=== PATIENT | female | born 1955 | race Caucasian/White ===

== ENCOUNTER 2018-08-19 01:14 | Observation (INO) | payer OTHER ==
--- OUTSIDE RECORDS SUMMARY | 2018-08-19 01:16 | XMS REPORT ---
:1955 Author Organization [employer] Care Team Providers Name Role Phone Kimberly Laney Provider Role Unavailable Allergies No Known Allergies Problems Problem Type Condition Code Onset Dates Condition Status Problem Hypothyroidism E03.9 Active Problem Hyperlipidemia E78.5 Active Medications No Known Medications Results No Known Results Summary Purpose [employer] Submission
--- OUTSIDE RECORDS SUMMARY | 2018-08-19 01:16 | XMS REPORT ---
:1955 Author Organization [employer] Care Team Providers Name Role Phone Kimberly Laney Provider Role Unavailable Allergies No Known Allergies Problems Problem Type Condition Code Onset Dates Condition Status Problem Hypothyroidism E03.9 Active Problem Degenerative disc disease, lumbar M51.36 Active Problem Hyperlipidemia E78.5 Active Medications No Known Medications Results No Known Results Summary Purpose [employer] Submission
[2018-08-19 02:07] LABS: Absolute Lymphocytes (CBC) 0.7 K/uL (0.7-4.9); Basophils % 0.3 % (0-1.3); Hematocrit 45.3 % (36.0-45.0); Lymphocytes % 5.3 % (15.3-44.8); MPV 10.8 fL (7.6-11.3); Monocytes % 2.9 % (3.3-12.3); RBC Red Blood Cell Count 5.45 M/uL (3.86-4.86)
[2018-08-19] MEDS ORDERED: MORPHINE 4 MG/ML SYR ONE (02:18)
[2018-08-19] MEDS ORDERED: MAGNE/ALUM HYDROXD 30 ML UCUP ONE (02:18)
[2018-08-19] MEDS ORDERED: LIDOCAINE VISCOUS 2% SOLN 15 ML UDC ONE (02:18)
[2018-08-19] MEDS ORDERED: ONDANSETRON 4 MG/2 ML VIAL ONE ×2 (02:18→14:03)
[2018-08-19] MEDS ORDERED: NA CHLORIDE 0.9% 1,000 ML ONE (02:19)
[2018-08-19] MEDS ORDERED: FAMOTIDINE 20 MG/2 ML VIAL IV ONE (02:19)
[2018-08-19 02:21] LABS: Albumin 4.5 g/dL (3.4-5.0); Bilirubin Direct 0.1 mg/dL (0-0.2); Bilirubin Total 0.5 mg/dL (0.2-1.0); Potassium 4.1 mmol/L (3.5-5.1); Protein, Total 8.2 g/dL (6.4-8.2)
[2018-08-19 03:02] LABS: Blood Morphology Comment NOT SEEN (NOT SEEN); Platelet Estimate ADEQ; Urine White Blood Cell Casts OK
--- NOTE | 2018-08-19 03:32 | ER ---
Nurse's Notes [facility] Name: Aliyah Lui Age: 63 yrs Sex: Female : 1955 Arrival Date: 08/19/2018 Time: 01:17 Bed 7 Private MD: Lenore Harris Diagnosis: Acute appendicitis Presentation: 08/19 01:29 Presenting complaint: Patient states: periumbilical abd pain and vomiting which began aa1 after eating a [employer] salad. Transition of care: patient was not received from another setting of care. Onset of symptoms was August 18, 2018 at 14:30. Risk Assessment: Do you want to hurt yourself or someone else? Patient reports no desire to harm self or others. Initial Sepsis Screen: Does the patient meet any 2 criteria? No. Patient's initial sepsis screen is negative. Does the patient have a suspected source of infection? No. Patient's initial sepsis screen is negative. Care prior to arrival: None. 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 - Social history:: Smoking status: Patient/guardian denies using tobacco, Patient/guardian denies using alcohol, street drugs, The patient lives with family. - Ebola Screening: : Patient denies exposure to infectious person Patient denies travel to an Ebola-affected area in the 21 days before illness onset. - Family history:: not pertinent. Screenin:30 Abuse screen: Denies threats or abuse. Denies injuries from another. Nutritional aa1 screening: No deficits noted. Tuberculosis screening: No symptoms or risk factors identified. Fall Risk None identified. Assessment: 01:30 General: Appears in no apparent distress. comfortable, Behavior is calm, cooperative, aa1 appropriate for age. Pain: Complains of pain in umbilical area. Neuro: Level of Consciousness is awake, alert, obeys commands, Oriented to person, place, time, situation, Gait is steady. Cardiovascular: Heart tones S1 S2 present. Respiratory: Airway is patent Respiratory effort is even, unlabored, Respiratory pattern is regular, symmetrical. GI: Abdomen is non-distended, Bowel sounds present X 4 quads. Abd is soft X 4 quads Reports nausea, vomiting. : No signs and/or symptoms were reported regarding the genitourinary system. EENT: No signs and/or symptoms were reported regarding the EENT system. Derm: No signs and/or symptoms reported regarding the dermatologic system. Musculoskeletal: Circulation, motion, and sensation intact. Capillary refill < 3 seconds. 03:12 Reassessment: Patient appears in no apparent distress at this time. Patient and/or aa1 family updated on plan of care and expected duration. Pain level reassessed. Patient is alert, oriented x 3, equal unlabored respirations, skin warm/dry/pink. Awaiting CT results. 04:00 Reassessment: Patient appears in no apparent distress at this time. Patient and/or aa1 family updated on plan of care and expected duration. Pain level reassessed. Patient is alert, oriented x 3, equal unlabored respirations, skin warm/dry/pink. Pt to be admitted; awaiting bed assignment. 04:49 Reassessment: Patient appears in no apparent distress at this time. Patient and/or aa1 family updated on plan of care and expected duration. Pain level reassessed. Patient is alert, oriented x 3, equal unlabored respirations, skin warm/dry/pink. Bed assignment received but still awaiting admission orders. 05:32 Reassessment: Patient appears in no apparent distress at this time. Patient is alert, aa1 oriented x 3, equal unlabored respirations, skin warm/dry/pink. Report given to Lyudmila on 2nd floor. Vital Signs: 01:33 BP 137 / 75; Pulse 94; Resp 18; Temp 98.3; Pulse Ox 96% on R/A; Weight 72.57 kg; Height aa1 5 ft. 2 in. (157.48 cm); Pain 8/10; 02:30 BP 125 / 69; Pulse 85; Resp 18; Pulse Ox 97% on R/A; aa1 03:10 BP 131 / 66; Pulse 80; Resp 18; Pulse Ox 96% on R/A; aa1 04:00 BP 136 / 70; Pulse 84; Resp 16; Pulse Ox 96% on R/A; Pain 0/10; aa1 04:49 BP 110 / 59; Pulse 81; Resp 16; Pulse Ox 95% on R/A; aa1 05:27 BP 136 / 62; Pulse 79; Resp 16; Temp 98.5; Pulse Ox 96% on R/A; Pain 6/10; aa1 01:33 Body Mass Index 29.26 (72.57 kg, 157.48 cm) aa1 ED Course: 01:17 Patient arrived in ED. am2 01:17 Lenore Harris FNP-C is Private Physician. am2 01:26 Serg Johnson MD is Attending Physician. ma2 01:27 Meredith Rodgers RN is Primary Nurse. aa1 01:31 Triage completed. aa1 01:32 Patient has correct armband on for positive identification. Placed in gown. Bed in low tl1 position. Call light in reach. Side rails up X 1. Pulse ox on. NIBP on. 01:32 No provider procedures requiring assistance completed. Inserted saline lock: 20 gauge tl1 in right antecubital area, using aseptic technique. Blood collected. 01:33 Arm band placed on right wrist. Patient placed in an exam room, on a stretcher. aa1 03:04 CT Abd/Pelvis - IV Contrast Only In Process Unspecified. EDMS 03:30 Nasreen Goodman MD is Hospitalizing Provider. [facility] 04:00 Door closed. Lights dimmed. Pillow given. Head of bed lowered. aa1 05:10 Hospitalizing Provider role handed off by Nasreen Goodman MD mw 05:10 Syed Potts MD is Hospitalizing Provider. 05:32 Patient admitted, IV remains in place. aa1 Administered Medications: 02:10 Drug: Zofran 4 mg Route: IVP; Infused Over: 2 mins; Site: right antecubital; tl1 03:10 Follow up: Response: No adverse reaction; Nausea is decreased aa1 02:10 Drug: GI Cocktail without - (Maalox Suspension 30 ml, Lidocaine Liquid 2 % 15 tl1 ml) Route: PO; 03:10 Follow up: Response: No adverse reaction; Marked relief of symptoms aa1 02:11 Drug: NS 0.9% 1000 ml Route: IV; Rate: 1 bolus; Site: right antecubital; tl1 02:11 Drug: Pepcid 20 mg Route: IVP; Infused Over: 2 mins; Site: right antecubital; tl1 03:11 Follow up: Response: No adverse reaction; Marked relief of symptoms aa1 02:12 Drug: morphine 4 mg Route: IVP; Infused Over: 2 mins; Site: right antecubital; tl1 03:12 Follow up: Response: No adverse reaction; Pain is decreased aa1 03:57 Drug: Dextrose 5 % in 1/2 Normal Saline with KCl 10 mEq/L 1000 ml Route: IV; Rate: 100 aa1 ml/hr; Site: right antecubital; 05:38 Follow up: IV Status: Infusion continued upon admission aa1 03:57 Drug: Zosyn 3.375 grams Route: IVPB; Infused Over: 60 mins; Site: right antecubital; aa1 04:57 Follow up: IV Status: Completed infusion; IV Intake: 100ml aa1 Intake: 04:57 IV: 100ml; Total: 100ml. aa1 Outcome: 03:31 Decision to Hospitalize by Provider. ma2 05:32 Admitted to Med/surg accompanied by tech, via stretcher, room 209, with chart, Report aa1 called to ACOSTA Coreas 05:32 Condition: stable 05:32 Instructed on the need for admit, Demonstrated understanding of instructions. 05:38 Patient left the ED. aa1 Signatures: Dispatcher [employer] EDMS Olivia Guerra RN RN Meredith Rodgers RN RN aa1 Cristy Beltrán RN RN tl1 Eliana Connor Mohammad, MD MD ma2
--- NOTE | 2018-08-19 03:32 | EDPHYS ---
Physician Documentation [facility] Name: Aliyah Lui Age: 63 yrs Sex: Female : 1955 Arrival Date: 08/19/2018 Time: 01:17 Bed 7 Private MD: Lenore Harris ED Physician Serg Johnson HPI: 08/19 03:28 This 63 yrs old Female presents to ER via Ambulatory with complaints of ma2 Abdominal Pain, Vomiting. 03:28 Onset: The symptoms/episode began/occurred gradually, 1 day(s) ago. Associated signs ma2 and symptoms: Pertinent negatives: belching, dysuria, GI bleeding, hematuria. Severity of symptoms: At their worst the symptoms were moderate in the emergency department the symptoms are unchanged. The patient has not experienced similar symptoms in the past. 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 - Social history:: Smoking status: Patient/guardian denies using tobacco, Patient/guardian denies using alcohol, street drugs, The patient lives with family. - Ebola Screening: : Patient denies exposure to infectious person Patient denies travel to an Ebola-affected area in the 21 days before illness onset. - Family history:: not pertinent. ROS: 03:28 Constitutional: Negative for fever, chills, and weight loss. ma2 03:28 Abdomen/GI: Positive for abdominal pain, Negative for vomiting, abdominal cramps, black/tarry stool. 03:28 All other systems are negative. Exam: 03:28 Constitutional: This is a well developed, well nourished patient who is awake, alert, ma2 and in no acute distress. Chest/axilla: Normal chest wall appearance and motion. Nontender with no deformity. No lesions are appreciated. Cardiovascular: Regular rate and rhythm with a normal S1 and S2. No gallops, murmurs, or rubs. Normal PMI, no JVD. No pulse deficits. Respiratory: Lungs have equal breath sounds bilaterally, clear to auscultation and percussion. No rales, rhonchi or wheezes noted. No increased work of breathing, no retractions or nasal flaring. Back: No spinal tenderness. No costovertebral tenderness. Full range of motion. MS/ Extremity: Pulses equal, no cyanosis. Neurovascular intact. Full, normal range of motion. Neuro: Awake and alert, GCS 15, oriented to person, place, time, and situation. Cranial nerves II-XII grossly intact. Motor strength 5/5 in all extremities. Sensory grossly intact. Cerebellar exam normal. Normal gait. 03:28 Abdomen/GI: Palpation: moderate abdominal tenderness, in the umbilical area. Vital Signs: 01:33 BP 137 / 75; Pulse 94; Resp 18; Temp 98.3; Pulse Ox 96% on R/A; Weight 72.57 kg; Height aa1 5 ft. 2 in. (157.48 cm); Pain 8/10; 02:30 BP 125 / 69; Pulse 85; Resp 18; Pulse Ox 97% on R/A; aa1 03:10 BP 131 / 66; Pulse 80; Resp 18; Pulse Ox 96% on R/A; aa1 04:00 BP 136 / 70; Pulse 84; Resp 16; Pulse Ox 96% on R/A; Pain 0/10; aa1 04:49 BP 110 / 59; Pulse 81; Resp 16; Pulse Ox 95% on R/A; aa1 05:27 BP 136 / 62; Pulse 79; Resp 16; Temp 98.5; Pulse Ox 96% on R/A; Pain 6/10; aa1 01:33 Body Mass Index 29.26 (72.57 kg, 157.48 cm) aa1 MDM: 01:26 Patient medically screened. ma2 03:28 Differential diagnosis: gastritis, pancreatitis, appendicitis, diverticulitis. Data ma2 reviewed: vital signs, nurses notes, lab test result(s). Counseling: I had a detailed discussion with the patient and/or guardian regarding: the historical points, exam findings, and any diagnostic results supporting the discharge/admit diagnosis, the presence of at least one elevated blood pressure reading (>120/80) during this emergency department visit, the need for outpatient follow up. Counseling: I had a detailed discussion with the patient and/or guardian regarding: the need for outpatient follow up, the need for further work-up and treatment in the hospital, discussed with dr. grant who recommend admission npo and abx . Response to treatment: the patient's symptoms have markedly improved after treatment. 04:45 ED course: I paged Dr. Mceknzie at 0445, he did not answer, I left a voice note with brief [facility] patient information and requested a call back . 08/19 01:50 Order name: Basic Metabolic Panel; Complete Time: 02:49 [facility] 08/19 01:50 Order name: CBC with Diff 1 08/19 01:50 Order name: Creatinine for Radiology; Complete Time: 02:49 [facility] 08/19 01:50 Order name: Hepatic Function; Complete Time: 02:49 [facility] 08/19 01:50 Order name: Lipase; Complete Time: 02:49 [facility] 08/19 03:03 Order name: CBC Smear Scan; Complete Time: 03:11 [facility] 08/19 01:55 Order name: CT Abd/Pelvis - IV Contrast Only [facility] 08/19 04:58 Order name: Basic Metabolic Panel [facility] 08/19 04:58 Order name: Basic Metabolic Panel [facility] 08/19 01:50 Order name: IV Saline Lock; Complete Time: 01:50 [facility] 08/19 01:50 Order name: Labs collected and sent; Complete Time: 02:12 [facility] 08/19 03:32 Order name: NPO; Complete Time: 03:41 [facility] 08/19 04:58 Order name: CONS Pharmacy Consult [facility] 08/19 04:58 Order name: CONS Physician Consult [facility] 08/19 04:58 Order name: NPO EDIA Administered Medications: 02:10 Drug: Zofran 4 mg Route: IVP; Infused Over: 2 mins; Site: right antecubital; tl1 03:10 Follow up: Response: No adverse reaction; Nausea is decreased aa1 02:10 Drug: GI Cocktail without - (Maalox Suspension 30 ml, Lidocaine Liquid 2 % 15 tl1 ml) Route: PO; 03:10 Follow up: Response: No adverse reaction; Marked relief of symptoms aa1 02:11 Drug: NS 0.9% 1000 ml Route: IV; Rate: 1 bolus; Site: right antecubital; tl1 02:11 Drug: Pepcid 20 mg Route: IVP; Infused Over: 2 mins; Site: right antecubital; tl1 03:11 Follow up: Response: No adverse reaction; Marked relief of symptoms aa1 02:12 Drug: morphine 4 mg Route: IVP; Infused Over: 2 mins; Site: right antecubital; tl1 03:12 Follow up: Response: No adverse reaction; Pain is decreased aa1 03:57 Drug: Dextrose 5 % in 1/2 Normal Saline with KCl 10 mEq/L 1000 ml Route: IV; Rate: 100 aa1 ml/hr; Site: right antecubital; 05:38 Follow up: IV Status: Infusion continued upon admission aa1 03:57 Drug: Zosyn 3.375 grams Route: IVPB; Infused Over: 60 mins; Site: right antecubital; aa1 04:57 Follow up: IV Status: Completed infusion; IV Intake: 100ml aa1 Disposition: 08/19/18 03:31 Hospitalization ordered by Syed Potts for Observation. Preliminary diagnosis is Acute appendicitis. - Bed requested for Telemetry/MedSurg (observation). - Status is Observation. aa1 - Condition is Stable. - Problem is new. - Symptoms are unchanged. UTI on Admission? No Signatures: Dispatcher [employer] EDMS Olivia Guerra RN RN Meredith Rodgers RN RN aa1 Cristy Beltrán RN RN tl1 Serg Johnson MD MD ma2 Linda Chen ar5 Corrections: (The following items were deleted from the chart) 04:42 03:31 Hospitalization Ordered by Nasreen Goodman MD for Observation. Preliminary ar5 diagnosis is Acute appendicitis. Bed requested for Telemetry/MedSurg (observation). Status is Observation. Condition is Stable. Problem is new. Symptoms are unchanged. UTI on Admission? No. ma2 05:09 04:42 08/19/2018 03:31 Hospitalization Ordered by Nasreen Goodman MD for Observation. zenaida Preliminary diagnosis is Acute appendicitis. Bed requested for Telemetry/MedSurg (observation). Status is Observation. Condition is Stable. Problem is new. Symptoms are unchanged. UTI on Admission? No. ar5 05:10 05:09 08/19/2018 03:31 Hospitalization Ordered by Nasreen Goodman MD for Observation. zenaida Preliminary diagnosis is Acute appendicitis. Bed requested for Telemetry/MedSurg (observation). Status is Observation. Condition is Stable. Problem is new. Symptoms are unchanged. UTI on Admission? No. mw 05:38 05:10 08/19/2018 03:31 Hospitalization Ordered by Syed Potts MD for Observation. aa1 Preliminary diagnosis is Acute appendicitis. Bed requested for Telemetry/MedSurg (observation). Status is Observation. Condition is Stable. Problem is new. Symptoms are unchanged. UTI on Admission? No.
[2018-08-19] MEDS ORDERED: PIPER/TAZO/NS 3.375gm 3.375 GM/100 ML BAG ONE (03:58)
[2018-08-19] MEDS ORDERED: D5.45NS W/KCL 20MEQ 1,000 ML IV ONE (03:58)
[2018-08-19] MEDS ORDERED: ONDANSETRON 4 MG/2 ML VIAL IV PRN (04:49)
[2018-08-19] MEDS ORDERED: HYDROMORPHONE HCL 1 MG/ML INJ IV PRN (04:49)
[2018-08-19] MEDS ORDERED: MORPHINE 2 MG/ML SYR IV PRN (04:49)
[2018-08-19] MEDS ORDERED: ACETAMINOPHEN 500 MG TAB PO PRN (04:49)
[2018-08-19] MEDS ORDERED: D5 0.45 NS 1,000 ML IV SCH (05:00)
--- NOTE | 2018-08-19 08:47 | P.HP ---
Certification for Inpatient Patient admitted to: Observation With expected LOS: >2 Midnights Practitioner: I am a practitioner with admitting privileges, knowledge of patient current condition, hospital course, and medical plan of care. Services: Services provided to patient in accordance with Admission requirements found in Title 42 Section 412.3 of the Code of Federal Regulations Patient History Date of Service: 08/19/18 Primary Care Provider: Lenore Harris Reason for admission: Appendicitis Allergies levofloxacin [From Levaquin] Allergy (Unverified 03/19/17 16:17) Unknown Home Medications: Levothyroxine [Synthroid] 125 mcg PO [id number] 08/19/18 - Past Medical/Surgical History Has patient received pneumonia vaccine in the past: No Diabetic: No -: Hypothyroidism - Social History Smoking Status: Never smoker Alcohol use: No CD- Drugs: No Caffeine use: Yes Place of Residence: Home Review of Systems 10-point ROS is otherwise unremarkable Gastrointestinal: Nausea, Vomiting, Abdominal Pain Physical Examination - Vital Signs Temperature: 98.4 F Blood Pressure: 124/58 Pulse: 84 Respirations: 16 Pulse Ox (%): 100 - Physical Exam General: Alert, In no apparent distress HEENT: Atraumatic, PERRLA, Mucous membr. moist/pink, EOMI, Sclerae nonicteric Neck: Supple, 2+ carotid pulse no bruit, No LAD, Without JVD or thyroid abnormality Respiratory: Clear to auscultation bilaterally, Normal air movement Cardiovascular: Regular rate/rhythm, Normal S1 S2 Gastrointestinal: Normal bowel sounds, Tenderness (Mild mcburneys point tenderness ) Musculoskeletal: No tenderness Integumentary: No rashes Neurological: Normal gait, Normal speech, Normal strength at 5/5 x4 extr, Normal tone, Normal affect Lymphatics: No axilla or inguinal lymphadenopathy - Studies Laboratory Data (last 24 hrs) 08/19/18 01:30: Creatinine 0.84 08/19/18 01:30: WBC 13.8 H, Hgb 15.1 H, Hct 45.3 H, Plt Count 279 08/19/18 01:30: Sodium 138, Potassium 4.1, BUN 17, Creatinine 0.85, Glucose 138 H, Total Bilirubin 0.5, AST 23, ALT 38, Alkaline Phosphatase 98, Lipase 74 Assessment and Plan - Problems (Diagnosis) (1) Appendicitis Current Visit: Yes Status: Acute Plan: Seen by Dr. Benitez Taking her to the OR today. Qualifiers: Appendicitis type: acute appendicitis Appendicitis gangrene presence: without gangrene Appendicitis perforation presence: without perforation Appendicitis abscess presence: without abscess (2) Hypothyroidism Current Visit: Yes Status: Acute Plan: Patient is stable. Can hold as she is npo Qualifiers: Hypothyroidism type: unspecified Qualified Code(s): E03.9 - Hypothyroidism , unspecified Discharge Plan: Home Plan to discharge in: 24 Hours - Advance Directives Does patient have a Living Will: No Does patient have a Durable POA for Healthcare: No - Code Status/Comfort Care Code Status Assessed: No Code Status: Full Code Physician Review: Patient Assessed, Agree with Above Assessment and Plan Critical Care: No Time Spent Managing Pts Care (In Minutes): 35
[2018-08-19] MEDS ORDERED: PIPER/TAZO/NS 3.375gm 3.375 GM/100 ML BAG IVPB SCH (12:00)
[2018-08-19] MEDS ORDERED: Ringers Lactate 1,000 ML IV ONE (12:11)
--- NOTE | 2018-08-19 12:11 | CON ---
Date of Consultation: 08/19/2018 Brief History Of Present Illness: The patient is a 63-year-old female who presents to [facility] with approximately 1 day of abdominal pain beginning approximately 2 p.m. yesterday. She was ea ting at [employer] she states and felt a sense of fullness and started having periumbilical pain at that time. No nausea, no vomiting. Mild subjective fever. No chills. No change in bowel or bladder hab its. The pain now has radiated to the right lower quadrant. She has never had similar episodes befo re in the past. She has had a tubal ligation only. No other gynecologic issues. The pain is consta nt at this area. Tenderness has proceeded to got worse, but since admission, it has gotten somewhat improved with medication and treatment, but continues to be significant in the right lower quadrant, particularly in the suprapubic area. Past Medical History: Significant for hypothyroidism, hyperlipidemia. Past Surgical History: She had tubal ligation, carpal tunnel surgery, surgery on cyst of the right a rm. She has had a breast biopsy and a tonsillectomy. Allergies: TO LEVAQUIN AND TAPE/LATEX. Home Medications: Include only Synthroid 125 mcg p.o. daily at 6 a.m. Social History: She denies smoking, alcohol, or recreational drug use. Review of Systems: A 10-point review of systems other than HPI denies. Physical Examination: Vital Signs: At the time of my examination, her vital signs were a BMI was 29.3, her blood pressure was 124/58, pulse 84, respiratory rate 16, temperature 98.4. General: She is awake, alert, oriented. Psychiatric: She is appropriate, conversive. HEENT: Normocephalic. Sclerae anicteric. Mucous membranes are moist. Oropharynx clear. Neck: Supple. No JVD. Chest: Normal expansion and excursion. Cardiovascular: Regular rate and rhythm. Pulmonary: Clear to auscultation bilaterally. Abdomen: Soft with positive right lower quadrant focal peritonitis at McBurney point. Positive toi umbilical tenderness in the suprapubic region as well. She has mild voluntary guarding in this area. Mild rebound. Extremities: No clubbing, cyanosis, or edema. Skin: Warm and dry. Laboratory Data: Reveals white blood count of 13.8, hemoglobin is 15.1, hematocrit of 45.3, platelet count is 279, neutrophils are 91%. Her sodium is 138, potassium 4.1, chloride 104, carbon dioxide 2 3, BUN 17, creatinine 0.8, glucose 138, calcium 9.0, total bilirubin 0.5, direct component 0.1, AST 2 3, ALT 38, alk phos is 98, lipase 74. She had a CT scan performed of the abdomen and pelvis. The of ficial dictation is currently pending, however, the [email or web address] radiology system shows signs consistent with acute early appendicitis, periappendiceal stranding, and appendicolith evident. There is enlar gement of the appendix I believe to 1.3 cm. Assessment And Plan: This is a 63-year-old female who comes in with signs and symptoms of early acut e appendicitis with an appendicolith. 1.IV fluid hydration. 2.Antibiotic coverage. 3.I have explained the risks, benefits, and alternatives of laparoscopic, possible open appendectomy including but not limited to bleeding, infection, damage to surrounding tissues, need further operat ion and procedures. The patient agrees to proceed as indicated. Thank you for this interesting consult. MAHAMED/STEPAN Voice ID: [id number] Report ID: [id number]
[2018-08-19] MEDS ORDERED: FENTANYL CITR 100 MCG/2 ML ONE (13:34)
[2018-08-19] MEDS ORDERED: LIDOCAINE 2% MPF 5 ML VIAL ONE (13:34)
[2018-08-19] MEDS ORDERED: PROPOFOL 200 MG/20 ML VIAL IV ONE (13:34)
[2018-08-19] MEDS ORDERED: ROCURONIUM 50 MG/5 ML VIAL IV ONE (13:35)
[2018-08-19] MEDS ORDERED: BUPIVACAINE 0.25% PF 10 ML VIAL ONE (13:38)
[2018-08-19] MEDS ORDERED: KETOROLAC 30 MG/ML INJ ONE (14:01)
[2018-08-19] MEDS ORDERED: DEXAMETHASONE 10 MG/ML VIAL ONE (14:01)
[2018-08-19] MEDS ORDERED: GLYCOPYRROLATE 0.2 MG/ML SYR ONE (14:28)
[2018-08-19] MEDS ORDERED: NEOSTIGMINE 1 MG/ML -10 ML VIAL ONE (14:28)
--- NOTE | 2018-08-19 14:31 | P.OP ---
Preoperative diagnosis: Acute Appendicitis Postoperative diagnosis: Acute Appendicitis Primary procedure: Laparoscopic Appendectomy Anesthesia: GETA + Local Estimated blood loss: <10cc Specimen: Vermiform Appendix Findings: Grossly inflammed appendix, suppurative changes Complications: None Transferred to: Recovery Room Condition: Good
[2018-08-19] MEDS ORDERED: HYDROCODONE/APAP 5/325 MG TAB PO PRN (14:35)
--- NOTE | 2018-08-19 15:10 | OP ---
Date of Procedure: 08/19/2018 Surgeon: Elian Ocasio MD, Preoperative Diagnosis: Acute appendicitis. Postoperative Diagnosis: Acute appendicitis. Procedure Performed: Laparoscopic appendectomy. Anesthesia: General endotracheal plus local with 0.25% Marcaine with epinephrine. Estimated Blood Loss: Less than 10 cc. Specimen: Vermiform appendix. Findings: Grossly inflamed appendix and suppurative changes. Complications: None. Disposition: Transferred to recovery room in good condition. Procedure In Detail: After informed consent was obtained, the patient was brought to the operating r oom, prepped and draped in the usual sterile fashion. After adequate anesthesia was achieved, an inf raumbilical area was anesthetized with 0.25% Marcaine, sharply incised. A 5 mm trocar was introduced in the abdomen without evidence of complication. Insufflation was obtained to 15 mmHg at this time. The area was inspected. There was no injury to vital structures upon entry into the abdomen. Aleksander tional trocar site was chosen in the suprapubic region. This was similarly anesthetized, sharply inc ised. The 5 mm trocar was introduced in the abdomen without evidence of complication. The umbilical trocar was then up-sized to a 12 mm under direct visualization without evidence of complication. Ad ditional trocar site was chosen in the left lower quadrant. This similarly anesthetized, sharply inc ised. A 5 mm trocar was introduced in the abdomen without evidence of complication. The patient was then positioned in head down, right side up position. Ratcheted grasper was used to grasp the patie nt's appendix, it was found to be in the right lower quadrant. There were suppurative changes in the area and some murky inflammatory fluid, but no evidence of gross perforation. The appendix was gras ped, elevated, and a mesoappendiceal window was created with the [place] retractor. Endo ZULAY 35 mookie e load was fired across the base of the appendix with good approximation of tissues. Staple line was found to be good and intact. The LigaSure device then used to take the mesoappendix down without ev idence of complication. The appendix was placed in the EndoCatch bag and removed through the umbilic al trocar. The abdomen was then re-insufflated at this time. The area was inspected. Staple line w as found to be in good position. Good hemostasis was achieved without any additional hemostatic giuseppe uvers. The area was copiously irrigated multiple times until completely clear. The pelvis was then inspected and washed out once again at this time, and all irrigant was removed at this time. The abd omen and pelvis were clean at the end of the procedure, and the staple line was found to be in good a natomic position without any evidence of leakage. No additional hemostatic maneuvers were required a t this point. The patient was positioned in neutral position and the remainder of the abdomen was th en suctioned out, and the umbilical trocar was removed. The umbilical trocar site was then closed us ing a Jacoby-La suture passer and 0 Vicryl in interrupted fashion with good approximation of ti ssues. The abdomen was then completely desufflated under direct visualization without evidence of co mplication. All trocars were removed. All skin incisions copiously irrigated and closed with a 4-0 Monocryl in a running fashion. Dermabond was placed over top. The patient tolerated the procedure w ell without evidence of complication and transferred to PACU in good condition. All counts were matthew ect at the end of the case. MAHAMED/STEPAN Voice ID: [id number] Report ID: [id number]
--- NOTE | 2018-08-21 11:30 | P.DS ---
Admission Date: 08/19/18 Discharge Date: 08/19/18 Primary Care Provider: Lenore Harris Disposition: ROUTINE DISCHARGE Discharge Condition: GOOD Reason for Admission: Appendicitis - Problems (1) Appendicitis Status: Acute Qualifiers: Appendicitis type: acute appendicitis Appendicitis gangrene presence: without gangrene Appendicitis perforation presence: without perforation Appendicitis abscess presence: without abscess (2) Hypothyroidism Status: Acute Qualifiers: Hypothyroidism type: unspecified Qualified Code(s): E03.9 - Hypothyroidism , unspecified Brief History of Present Illness: Patient admitted for abdomina pain and nausea. Was sent to the floor with a consult to Dr. Benitez Hospital Course: Had lap appendectomy with Dr. Ocasio. Who cleared her for discharge home. will have her follow up with her PCP. Lenore Harris. Vital Signs/Physical Exam: Temp Pulse Resp BP Pulse Ox 99.4 F 75 18 106/50 L 96 08/19/18 16:00 08/19/18 16:00 08/19/18 16:00 08/19/18 16:00 08/19/18 16:00 General: Alert, In no apparent distress HEENT: Atraumatic, PERRLA, EOMI Neck: Supple, JVD not distended Respiratory: Clear to auscultation bilaterally, Normal air movement Cardiovascular: Regular rate/rhythm, Normal S1 S2 Gastrointestinal: Normal bowel sounds, No tenderness Musculoskeletal: No tenderness Integumentary: No rashes Neurological: Normal speech, Normal tone, Normal affect Lymphatics: No axilla or inguinal lymphadenopathy Laboratory Data at Discharge: WBC 13.8 K/uL (4.3-10.9) H 08/19/18 01:30 Hgb 15.1 g/dL (12.0-15.0) H 08/19/18 01:30 Hct 45.3 % (36.0-45.0) H 08/19/18 01:30 Plt Count 279 K/uL (152-406) 08/19/18 01:30 Sodium 138 mmol/L (136-145) 08/19/18 01:30 Potassium 4.1 mmol/L (3.5-5.1) 08/19/18 01:30 BUN 17 mg/dL (7-18) 08/19/18 01:30 Creatinine 0.85 mg/dL (0.55-1.3) 08/19/18 01:30 Glucose 138 mg/dL (74-106) H 08/19/18 01:30 Total Bilirubin 0.5 mg/dL (0.2-1.0) 08/19/18 01:30 AST 23 U/L (15-37) 08/19/18 01:30 ALT 38 U/L (12-78) 08/19/18 01:30 Alkaline Phosphatase 98 U/L (45-117) 08/19/18 01:30 Lipase 74 U/L (73-393) 08/19/18 01:30 Home Medications: Levothyroxine [Synthroid] 125 mcg PO [id number] 08/19/18 Diet: Regular Activity: No lifting more than 10 lbs Followup: Elian Ocasio MD [ACTIVE - CAN ADMIT] - Time spent managing pt's care (in minutes): 20
--- NOTE | 2018-08-21 12:39 | RAD REPORT ---
EXAM DESCRIPTION: CT - Abdomen Pelvis W Contrast - 08/19/2018 3:28 am ADDENDUM #1 95 mL Isovue-300 intravenous contrast utilized for the study. Electronically signed by: Taqueria Pacheco MD 08/19/2018 3:41 AM CDT End of Addendum COMPARISON: CT abdomen pelvis March 19, 2017 CLINICAL HISTORY: Periumbilical abdominal pain TECHNIQUE: Multiple helical axial images were obtained through the abdomen and pelvis using intraven ous contrast. Coronal and sagittal reformatted images were obtained. All CT scans at this facility use dose modulation, iterative reconstruction, and/or weight-based dosi ng when appropriate to reduce radiation dose to as low as reasonably achievable. FINDINGS: Lung bases: Appear unremarkable. Liver: Low-attenuation is present suggestive of fatty changes. Gallbladder/biliary: Appears unremarkable Pancreas: Unremarkable. No evidence of ductal enlargement. Spleen: Appears unremarkable. No splenomegaly. Adrenals: Unremarkable. Kidneys and ureters: No evidence of hydronephrosis. Normal enhancement. Bladder: Unremarkable. Pelvic organs: Unremarkable. Bowel: Appendix is enlarged measuring up to 1.3 cm in width with trace adjacent stranding suggestive of acute appendicitis. There is a 1.3 cm calcification in the proximal appendiceal lumen compatible w ith an appendicolith. No evidence of abscess. No evidence of bowel obstruction. No bowel wall thick ening. Vasculature: Mild aortic atherosclerosis is present. Peritoneum: No free air. No significant free fluid. Lymph nodes: Unremarkable. Soft tissues: Unremarkable. Bones: Rounded lucency with striations in the L4 vertebral body is suggestive of a hemangioma. IMPRESSION: Findings suggestive of acute appendicitis. THIS REPORT CONTAINS FINDINGS THAT MAY BE CRITICAL TO PATIENT CARE: The findings were verbally discu ssed via telephone conference with Dr. Johnson by Dr. Pacheco at 0320 hours central time on August 19, 2018 . The results were acknowledged and understood. Electronically signed by: Taqueria Pacheco MD 08/19/2018 3:22 AM CDT Due to temporary technical issues with the PACS/Fluency reporting system, reports are being signed by the in house radiologist as a courtesy to ensure prompt reporting. The interpreting radiologist is f ully responsible for the content of the report.
== END 2018-08-19 18:24 | disposition home or self-care (01) ==
LOC: ER 01:14 → ERHOLD 04:49 → INTOOBSV 04:49 → 2ND 05:29
PROVIDERS: ADMIT Internal Medicine; ATTEND Internal Medicine
PROC: 0DTJ4ZZ Resection of Appendix, Percutaneous Endoscopic Approach (ICD-10-PCS; principal; 2018-08-19 12:00)
DX: K35.80 Unspecified acute appendicitis (principal); E03.9 Hypothyroidism, unspecified; E78.5 Hyperlipidemia, unspecified; Z91.040 Latex allergy status
CPT/HCPCS: 36415; 74177; 80048; 80076; 83690; 85025; 88304; 96365; 96366; 96368; 96375; 99285; G0378; J1100; J2270; J2405; J2543; J2704; J2710; J3010; J7030; Q9967

== ENCOUNTER 2018-08-21 14:35 | Inpatient (IN) | payer OTHER ==
--- OUTSIDE RECORDS SUMMARY | 2018-08-21 14:44 | XMS REPORT ---
:1955 Author Organization [employer] Care Team Providers Name Role Phone Kimberly Laney Provider Role Unavailable Allergies No Known Allergies Problems Problem Type Condition Code Onset Dates Condition Status Problem Hypothyroidism E03.9 Active Problem Degenerative disc disease, lumbar M51.36 Active Problem Hyperlipidemia E78.5 Active Medications No Known Medications Results No Known Results Summary Purpose [employer] Submission
[2018-08-21] MEDS ORDERED: NA CHLORIDE 0.9% 1,000 ML ONE ×2 (15:44→18:39)
[2018-08-21] MEDS ORDERED: ONDANSETRON 4 MG/2 ML VIAL ONE (15:44)
[2018-08-21 16:06] LABS: Absolute Lymphocytes (CBC) 0.6 K/uL (0.7-4.9); Basophils % 0.3 % (0-1.3); Eosinophils % 0.1 % (0-4.4); Lymphocytes % 5.8 % (15.3-44.8); MPV 10.5 fL (7.6-11.3); Monocytes % 3.1 % (3.3-12.3); RBC Red Blood Cell Count 5.08 M/uL (3.86-4.86)
[2018-08-21 16:15] LABS: Albumin 3.4 g/dL (3.4-5.0); Bilirubin Direct 0.1 mg/dL (0-0.2); Bilirubin Total 0.6 mg/dL (0.2-1.0); Potassium 3.9 mmol/L (3.5-5.1); Protein, Total 8.2 g/dL (6.4-8.2)
--- NOTE | 2018-08-21 17:05 | RAD REPORT ---
EXAM DESCRIPTION: CT - Abdomen Pelvis W Contrast - 08/21/2018 4:39 pm CLINICAL HISTORY: Abdominal pain, diarrhea, laparoscopic appendectomy 2 days earlier COMPARISON: CT study August 19 TECHNIQUE: Biphasic, helical CT imaging of the abdomen and pelvis was performed following 100 ml non -ionic IV contrast. No oral contrast administered. All CT scans are performed using dose optimization technique as appropriate and may include automated exposure control or mA/KV adjustment according to patient size. FINDINGS: Lung base atelectasis changes are present. The liver, spleen, and pancreas show no suspicious findings. Gallbladder and biliary tree are also wi thout suspicious finding. Symmetric renal function is seen with no hydronephrosis or suspicious renal mass. No pyelonephritis o r acute parenchymal process. No bladder abnormalities. No adrenal abnormalities. Stomach is distended but not dilated by retained fluid. No gastric wall thickening or mass. No gastri c outlet obstruction. Duodenum is normal in appearance. Distal to the ligament of Treitz small bowel loops are dilated up to 3.7 cm. This dilatation abruptly truncates at a periumbilical hernia. The her joe is 4 cm in diameter with a 2 centimeter neck. Hernia contains a knuckle of small bowel. The exiti ng limb of the small bowel to the terminal ileum is decompressed. Colon is decompressed. Appendectomy surgical changes are noted. Small quantity of free fluid is present in the cul de sac. Herniated bow el loop in the dilated bowel loops do not appear abnormally thickened [place]. Vascular compromise is n ot currently suspected. No free air or pneumatosis. No abscess or extravasation of bowel content. No free air, free fluid or inflammatory stranding. No hernia, mass or bulky lymphadenopathy. No suspicious bony findings. IMPRESSION: Mechanical small bowel obstruction secondary to an incarcerated periumbilical hernia. Hernia contains a single loop of small bowel with the exiting limb, distal small bowel and colon deco mpressed. No abscess, free air or extravasation of bowel content.
[2018-08-21] MEDS ORDERED: MEPERIDINE HCL 25 MG/0.5 ML ONE ×2 (17:30→18:39)
--- NOTE | 2018-08-21 18:20 | ER ---
Nurse's Notes [facility] Name: Aliyah Lui Age: 63 yrs Sex: Female : 1955 Arrival Date: 08/21/2018 Time: 14:37 Bed 7 Private MD: Diagnosis: Incarcerated periumbilical hernia;Small Bowel Obstruction Presentation: 08/21 14:38 Presenting complaint: Patient states: S/P lap appendectomy from Sat and been vomiting hj with "like dark stuff and it smells bad" since yesterday; reports low grade fever; reports diarrhea;. Transition of care: patient was not received from another setting of care. Onset of symptoms was August 21, 2018. Risk Assessment: Do you want to hurt yourself or someone else? Patient reports no desire to harm self or others. Initial Sepsis Screen: Does the patient meet any 2 criteria? No. Patient's initial sepsis screen is negative. Does the patient have a suspected source of infection? No. Patient's initial sepsis screen is negative. Care prior to arrival: None. 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 - Family history:: not pertinent. - Social history:: Smoking status: Patient/guardian denies using tobacco. - Ebola Screening: : Patient negative for fever greater than or equal to 101.5 degrees Fahrenheit, and additional compatible Ebola Virus Disease symptoms Patient denies exposure to infectious person Patient denies travel to an Ebola-affected area in the 21 days before illness onset No symptoms or risks identified at this time. - Hospitalizations: : No recent hospitalization is reported. Screenin:00 Abuse screen: Denies threats or abuse. Denies injuries from another. Nutritional hb screening: No deficits noted. Tuberculosis screening: No symptoms or risk factors identified. Fall Risk None identified. Assessment: 15:00 General: Appears in no apparent distress. Behavior is calm, cooperative. Pain: Pain hb currently is 3 out of 10 on a pain scale. Neuro: Level of Consciousness is awake, alert, obeys commands, Oriented to person, place, time, situation. Cardiovascular: Capillary refill < 3 seconds Patient's skin is warm and dry. Respiratory: Airway is patent Respiratory effort is even, unlabored, Respiratory pattern is regular, symmetrical. GI: Abdomen is non-distended, Bowel sounds present X 4 quads. Reports nausea. : No signs and/or symptoms were reported regarding the genitourinary system. EENT: No signs and/or symptoms were reported regarding the EENT system. Derm: Skin is intact, is healthy with good turgor. Musculoskeletal: No signs and/or symptoms reported regarding the musculoskeletal system. 15:56 Reassessment: Patient appears in no apparent distress at this time. No changes from previously documented assessment. Patient and/or family updated on plan of care and expected duration. Pain level reassessed. Patient is alert, oriented x 3, equal unlabored respirations, skin warm/dry/pink. 16:55 Reassessment: Patient appears in no apparent distress at this time. Patient and/or hb family updated on plan of care and expected duration. Pain level reassessed. Patient is alert, oriented x 3, equal unlabored respirations, skin warm/dry/pink. Vital Signs: 14:40 BP 142 / 79; Pulse 99; Resp 18; Temp 98.2(O); Pulse Ox 95% on R/A; Weight 72.57 kg; hj Height 5 ft. 2 in. (157.48 cm); Pain 3/10; 15:45 BP 127 / 64; Pulse 97; Resp 15; Pulse Ox 97% on R/A; Pain 3/10; hb 16:45 BP 133 / 73; Pulse 88; Resp 15; Pulse Ox 99% on R/A; Pain 0/10; hb 18:36 BP 133 / 73; Pulse 95; Resp 17; Pulse Ox 100% on R/A; sg 19:20 BP 126 / 67; Pulse 80; Resp 16; Temp 98.2; Pulse Ox 96% on R/A; sg 14:40 Body Mass Index 29.26 (72.57 kg, 157.48 cm) ED Course: 14:37 Patient arrived in ED. mr 14:40 Triage completed. hj 14:40 Arm band placed on right wrist. 14:44 Hakeem Garza MD is Attending Physician. rn 15:00 Patient has correct armband on for positive identification. Placed in gown. Bed in low hb position. Call light in reach. Side rails up X 1. 15:22 Anamaria Rust RN is Primary Nurse. hb 15:32 Inserted saline lock: 20 gauge in right antecubital area, using aseptic technique. hb Blood collected. 15:41 Radiology exam delayed due to lab results not completed at this time. (BUN/Creatinine) nj IV insertion attempt and/or patient not having appropriate IV at this time. 15:44 EKG done, by environmental tech. reviewed by Hakeem Garza MD. sm3 16:37 CT completed. Patient tolerated procedure well. Patient moved to CT. Patient moved back wi from CT. 16:38 CT Abd/Pelvis - IV Contrast Only In Process Unspecified. EDMS 18:19 Elian Ocasio MD is Hospitalizing Provider. rn Administered Medications: 15:50 Drug: Zofran 4 mg Route: IVP; Site: right antecubital; hb 16:12 Follow up: Response: No adverse reaction hb 15:51 Drug: NS 0.9% 1000 ml Route: IV; Rate: 1000 ml; Site: right antecubital; hb 16:55 Follow up: Response: No adverse reaction; IV Status: Completed infusion; IV Intake: hb 1000ml 17:19 Drug: Demerol 25 mg Route: IVP; Site: right antecubital; sg 18:40 Drug: Demerol 25 mg Route: IVP; Site: right antecubital; sg 18:40 Drug: NS 0.9% 1000 ml Route: IV; Rate: 125 ml/hr; Site: right antecubital; sg Intake: 16:55 IV: 1000ml; Total: 1000ml. hb Outcome: 18:19 Decision to Hospitalize by Provider. rn 19:54 Patient left the ED. ak1 Signatures: Dispatcher [employer] EDMS Saeed Tidwell RN RN sg JunoEugenia Hakeem Garza MD MD rn Krenek, Amber, RN RN ak1 Raphael Briscoe RN RN Anamaria Rust RN RN Bubba Lopez Shakira 3 Corrections: (The following items were deleted from the chart) 14:42 14:40 Pulse 99bpm; Resp 18bpm; Pulse Ox 95% RA; Temp 98.2F Oral; 72.57 kg; Height 5 ft. hj 2 in.; BMI: 29.2; Pain 3/10; hj
--- NOTE | 2018-08-21 18:20 | EDPHYS ---
Physician Documentation [facility] Name: Aliyah Lui Age: 63 yrs Sex: Female : 1955 Arrival Date: 08/21/2018 Time: 14:37 Bed 7 Private MD: ED Physician Hakeem Garza HPI: 08/21 15:31 This 63 yrs old Female presents to ER via Ambulatory with complaints of rn Vomiting/Diarrhea. 15:31 The patient presents to the emergency department with nausea, vomiting, abdominal pain. rn Onset: The symptoms/episode began/occurred yesterday. Possible causes: unknown. Associated signs and symptoms: Pertinent positives: abdominal pain, nausea, vomiting, Pertinent negatives: fever. Severity of symptoms: At their worst the symptoms were moderate in the emergency department the symptoms are unchanged. The patient has not experienced similar symptoms in the past. The patient has been recently seen by a physician: The patient has been recently been admitted at [facility]. Reports had lap appendectomy this past Tuesday, has been having mild abd pain since leaving hospital, is having bowel movements, has thrown up repeatedly since yesterday and feels weak, no appetite, and feels bloated. Denies blood in emesis or black stool. No previous hx of ulcers or GERD.. 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 - Family history:: not pertinent. - Social history:: Smoking status: Patient/guardian denies using tobacco. - Ebola Screening: : Patient negative for fever greater than or equal to 101.5 degrees Fahrenheit, and additional compatible Ebola Virus Disease symptoms Patient denies exposure to infectious person Patient denies travel to an Ebola-affected area in the 21 days before illness onset No symptoms or risks identified at this time. - Hospitalizations: : No recent hospitalization is reported. ROS: 15:31 Constitutional: Negative for fever, chills, and weight loss, Eyes: Negative for injury, rn pain, redness, and discharge, Neck: Negative for injury, pain, and swelling, Cardiovascular: Negative for chest pain, palpitations, and edema, Respiratory: Negative for shortness of breath, cough, wheezing, and pleuritic chest pain, Abdomen/GI: + for abd pain/nausea/vomiting MS/Extremity: Negative for injury and deformity, Skin: Negative for injury, rash, and discoloration, Neuro: + generalized weakness Exam: 15:31 Constitutional: This is a well developed, well nourished patient who is awake, alert rn Head/Face: Normocephalic, atraumatic. Eyes: Pupils equal round and reactive to light, extra-ocular motions intact. Lids and lashes normal. Conjunctiva and sclera are non-icteric and not injected. Cornea within normal limits. Periorbital areas with no swelling, redness, or edema. ENT: dry MM and cracked lips Cardiovascular: Regular rate and rhythm. No pulse deficits. Respiratory: No increased work of breathing, no retractions or nasal flaring. Abdomen/GI: soft, mild tenderness bilateral lower quadrants, no peritoneal signs. MS/ Extremity: Pulses equal, no cyanosis. Neurovascular intact. Full, normal range of motion. Equal circumference. Neuro: Awake and alert, GCS 15, oriented to person, place, time, and situation. Cranial nerves II-XII grossly intact. Motor strength 5/5 in all extremities. Sensory grossly intact. Cerebellar exam normal Vital Signs: 14:40 BP 142 / 79; Pulse 99; Resp 18; Temp 98.2(O); Pulse Ox 95% on R/A; Weight 72.57 kg; hj Height 5 ft. 2 in. (157.48 cm); Pain 3/10; 15:45 BP 127 / 64; Pulse 97; Resp 15; Pulse Ox 97% on R/A; Pain 3/10; hb 16:45 BP 133 / 73; Pulse 88; Resp 15; Pulse Ox 99% on R/A; Pain 0/10; hb 18:36 BP 133 / 73; Pulse 95; Resp 17; Pulse Ox 100% on R/A; sg 19:20 BP 126 / 67; Pulse 80; Resp 16; Temp 98.2; Pulse Ox 96% on R/A; sg 14:40 Body Mass Index 29.26 (72.57 kg, 157.48 cm) MDM: 14:44 Patient medically screened. rn 18:16 Differential diagnosis: bowel obstruction, ileus. Data reviewed: vital signs, nurses rn notes, lab test result(s), radiologic studies, CT scan, and as a result, I will admit patient. Counseling: I had a detailed discussion with the patient and/or guardian regarding: the historical points, exam findings, and any diagnostic results supporting the discharge/admit diagnosis, lab results, radiology results, the need for further work-up and treatment in the hospital. Response to treatment: the patient's symptoms have mildly improved after treatment, and as a result, I will admit patient. Admission orders: after a detailed discussion of the patient's condition and case, the admit orders are written by me. ED course: Discussed case with Dr. Ocasio, has incarcerated hernia with SBO, requests admission to his service and NPO at midnight, will correct tomorrow AM.. 08/21 15:01 Order name: Creatinine for Radiology; Complete Time: 16:27 rn 08/21 15:01 Order name: Basic Metabolic Panel; Complete Time: 16:27 rn 08/21 15:01 Order name: CBC with Diff rn 08/21 15:01 Order name: Hepatic Function; Complete Time: 16:27 rn 08/21 15:01 Order name: Lipase; Complete Time: 16: rn 08/21 19:31 Order name: Manual Differential EDMS 08/21 15:01 Order name: IV Saline Lock; Complete Time: 15:51 rn 08/21 15:01 Order name: CT Abd/Pelvis - IV Contrast Only; Complete Time: 18:47 rn 08/21 15:01 Order name: EKG; Complete Time: 15:23 rn 08/21 15:01 Order name: Labs collected and sent; Complete Time: 15:51 rn 08/21 15:01 Order name: EKG - Nurse/Tech; Complete Time: 15:50 rn Administered Medications: 15:50 Drug: Zofran 4 mg Route: IVP; Site: right antecubital; hb 16:12 Follow up: Response: No adverse reaction hb 15:51 Drug: NS 0.9% 1000 ml Route: IV; Rate: 1000 ml; Site: right antecubital; hb 16:55 Follow up: Response: No adverse reaction; IV Status: Completed infusion; IV Intake: hb 1000ml 17:19 Drug: Demerol 25 mg Route: IVP; Site: right antecubital; sg 18:40 Drug: Demerol 25 mg Route: IVP; Site: right antecubital; sg 18:40 Drug: NS 0.9% 1000 ml Route: IV; Rate: 125 ml/hr; Site: right antecubital; sg Disposition: 08/21/18 18:19 Hospitalization ordered by Elian Ocasio for Inpatient Admission. Preliminary diagnosis are Incarcerated periumbilical hernia, Small Bowel Obstruction. - Bed requested for Telemetry/MedSurg (Inpatient). - Status is Inpatient Admission. ak1 - Condition is Stable. - Problem is new. - Symptoms have improved. UTI on Admission? No Signatures: Dispatcher [employer] EDMS Josefa Loera, RN RN Saeed Tidwell RN RN Hakeem Garza MD MD rn Krenek, Amber RN [facility]COSTA ak1 Raphael Briscoe RN [facility]STA Anamaria Rust RN [facility]STA Corrections: (The following items were deleted from the chart) 18:28 18:19 Hospitalization Ordered by Elian Ocasio MD for Inpatient Admission. Preliminary dw diagnosis is Incarcerated periumbilical hernia; Small Bowel Obstruction. Bed requested for Telemetry/MedSurg (Inpatient). Status is Inpatient Admission. Condition is Stable. Problem is new. Symptoms have improved. UTI on Admission? No. rn 19:54 18:28 08/21/2018 18:19 Hospitalization Ordered by Elian Ocasio MD for Inpatient ak1 Admission. Preliminary diagnosis is Incarcerated periumbilical hernia; Small Bowel Obstruction. Bed requested for Telemetry/MedSurg (Inpatient). Status is Inpatient Admission. Condition is Stable. Problem is new. Symptoms have improved. UTI on Admission? No. dw
[2018-08-21 19:30] LABS: Blood Morphology Comment NOT SEEN (NOT SEEN); Platelet Estimate ADEQ
[2018-08-21] MEDS ORDERED: ONDANSETRON 4 MG/2 ML VIAL IV PRN (20:02)
[2018-08-21] MEDS: D5 0.45 NS 1,000 ML IV SCH (20:52)
[2018-08-21] MEDS ORDERED: DIPHENHYDRAMINE 50 MG/ML VIAL IV ONE (21:15)
[2018-08-21] MEDS: MEPERIDINE HCL 50 MG/ML AMP IV PRN (21:36)
[2018-08-21] MEDS: PANTOPRAZOLE 40 MG INJ IVP SCH (22:07)
[2018-08-21] MEDS: SODIUM CHLORIDE 0.9% 10ML INJ IV PRN (22:08)
[2018-08-22] MEDS: MEPERIDINE HCL 50 MG/ML AMP IV PRN ×2 (03:41→08:42)
[2018-08-22] MEDS: D5 0.45 NS 1,000 ML IV SCH ×2 (04:34→16:37)
[2018-08-22 06:20] LABS: Absolute Lymphocytes (CBC) 1.3 K/uL (0.7-4.9); Basophils % 0.6 % (0-1.3); Eosinophils % 3.4 % (0-4.4); Hematocrit 36.4 % (36.0-45.0); Lymphocytes % 18.2 % (15.3-44.8); MPV 10.5 fL (7.6-11.3); Monocytes % 6.4 % (3.3-12.3); RBC Red Blood Cell Count 4.31 M/uL (3.86-4.86)
[2018-08-22] MEDS: PANTOPRAZOLE 40 MG INJ IVP SCH (08:42)
[2018-08-22] MEDS: SODIUM CHLORIDE 0.9% 10ML INJ IV PRN (08:43)
[2018-08-22] MEDS ORDERED: Ringers Lactate 1,000 ML IV ONE (11:01)
[2018-08-22] MEDS ORDERED: BUPIVACA 0.5%/EPI 0.0005%/PF 10 ML VIAL ONE (11:06)
[2018-08-22] MEDS ORDERED: CEFAZOLIN/SWI 1gm 1 GM/10 ML SYR ONE (11:33)
[2018-08-22] MEDS ORDERED: PROPOFOL 200 MG/20 ML VIAL IV ONE (11:40)
[2018-08-22] MEDS ORDERED: LIDOCAINE 2% MPF 5 ML VIAL ONE (11:40)
[2018-08-22] MEDS ORDERED: FENTANYL CITR 100 MCG/2 ML ONE (11:40)
[2018-08-22] MEDS ORDERED: MIDAZOLAM HCL 2 MG/2 ML INJ ONE (11:40)
[2018-08-22] MEDS ORDERED: ROCURONIUM 50 MG/5 ML VIAL IV ONE (11:40)
[2018-08-22] MEDS ORDERED: ONDANSETRON 4 MG/2 ML VIAL ONE (11:41)
--- NOTE | 2018-08-22 12:21 | P.OP ---
Preoperative diagnosis: Umbilical Hernia Postoperative diagnosis: Umbilical Hernia Primary procedure: Open Primary Umbilical Hernia Repair Anesthesia: GETA + Local Estimated blood loss: <2cc Specimen: None Findings: prior suture tore through fascia Complications: None Transferred to: Recovery Room Condition: Good
[2018-08-22] MEDS ORDERED: GLYCOPYRROLATE 0.2 MG/ML SYR ONE (12:34)
[2018-08-22] MEDS ORDERED: NEOSTIGMINE 1 MG/ML -10 ML VIAL ONE (12:35)
[2018-08-22] MEDS ORDERED: CODEINE 30MG/APAP 300MG TAB PO ONE (12:45)
[2018-08-22] MEDS ORDERED: MORPHINE 2 MG/ML SYR IV PRN (12:45)
[2018-08-22] MEDS: MORPHINE 4 MG/ML SYR ONE ×2 (12:53→13:00)
[2018-08-22] MEDS: HYDROMORPHONE HCL 1 MG/ML INJ ONE ×2 (13:13→13:19)
[2018-08-22] MEDS ORDERED: MORPHINE 4 MG/ML SYR ONE (13:22)
--- NOTE | 2018-08-22 14:51 | EKG ---
Test Date: 2018-08-21 Test Time: 15:39:35 Electrical Appliance Servicer: JOSEPHINE MEASUREMENT RESULTS: Intervals: Rate: 91 KS: 120 QRSD: 86 QT: 352 QTc: 432 Benedict: P: 50 KS: 120 QRS: 51 T: -3 INTERPRETIVE STATEMENTS: Normal sinus rhythm Nonspecific T wave abnormality Abnormal ECG Compared to ECG 10/30/2010 00:02:19 T-wave abnormality now present Electronically Signed On 08-22-18 14:47:34 CDT by Kenan Gee
--- NOTE | 2018-08-22 22:19 | HP ---
Date of Admission: 08/21/2018 Brief History Of Present Illness: The patient is a 63-year-old female who came in to the hospital on 08/19 with evidence of acute appendicitis. She had an uneventful laparoscopic appendectomy on 08/19 and was ultimately discharged home. After getting home, she noted that she had some aggressive coug marianela spells and developed some nausea and vomiting immediately after. She states that after the aggr essive coughing or the aggressive episode of emesis x1, she felt a pop in her belly. Her abdominal p ain was minimal, and she had not taken any pain medication prior to her nausea, vomiting, and coughin g spells. Several hours after her feeling of the pop sensation in her abdomen, she developed some pa in in the periumbilical region, sort of in the midline predominantly, and it was associated with naus ea, vomiting, inability to tolerate p.o. She also had diarrhea associated with it. She had some mil d bloating. As such, she came to the emergency room, at which point a CT scan was performed, which s howed a periumbilical hernia with small bowel entrapment likely consistent with a small bowel obstruc tion due to a periumbilical hernia. Past Medical History: Significant for hypothyroidism, hyperlipidemia. Past Surgical History: She had a tubal ligation, carpal tunnel surgery, cyst of the right arm, breas t biopsy, tonsillectomy, and the above laparoscopic appendectomy. Allergies: TO LEVAQUIN AND LATEX/TAPE. Home Medications: Include Synthroid. Social History: She denies smoking, alcohol, or recreational drug use. Review of Systems: A 10-point review of systems other than HPI. Physical Examination: Vital Signs: At the time of examination, her vital signs were a BMI of 29.9, her blood pressure was 137/68, pulse was 88, respiratory rate 17, temperature 97.7. General: She is awake, alert, and oriented. She is in no apparent distress. Psychiatric: She is appropriate, conversive. HEENT: She is normocephalic. Sclerae anicteric. Mucous membranes are moist. Oropharynx is clear. Neck: Supple. No JVD. Chest: Normal expansion and excursion. Cardiovascular: Regular rate and rhythm. Pulmonary: Clear to auscultation bilaterally. Abdomen: Soft with mild periumbilical tenderness to palpation. She had a reducible periumbilical he rnia, likely from a torn surgical stitch from the aggressive coughing, but is reducible at this time. There are no peritoneal signs. No rebound. No guarding. The remainder of abdominal exam is benig n. Her incisions are healing quite well with no evidence of infection. Extremities: No clubbing, cyanosis, or edema. Skin: Warm and dry. Laboratory Data: Reveals a white blood cell count of 11.0, hemoglobin is 14.1, hematocrit of 43.0, p latelet count is 260, neutrophils are 90%. Her sodium 136, potassium 3.9, chloride 100, carbon dioxi de 29, BUN 14, creatinine 0.8, glucose is 126. Her lipase is 72. She had a CT scan performed of the abdomen and pelvis which was officially read as described as mecha nical small bowel obstruction secondary to an incarcerated periumbilical hernia. The hernia contains a single loop of small bowel with an exiting limb. Distal small bowel and colon are decompressed. No abscess, free air, or extravasation of bowel content. Assessment And Plan: This is a 63-year-old female who presents with a bowel obstruction due to periu mbilical hernia likely caused by recent surgery. She likely ruptured her suture or tore the tissues allowing for opening of the periumbilical space and allowing for small bowel to enter this and cause the small bowel obstruction. Therefore, I recommend open primary umbilical hernia repair with reduct ion of small bowel. The small bowel is currently reduced, and I find no evidence of bowel compromise , and as such, this will be a primary umbilical hernia repair without mesh at this time considering s he had recent intraabdominal contamination from the appendicitis. I have explained the risks, benefits, and alternatives of the above stated plan. The patient agrees to proceed as ind icated. MAHAMED/STEPAN Voice ID: [id number]
--- NOTE | 2018-08-22 23:00 | OP ---
Date of Procedure: 08/22/2018 Surgeon: Elian Ocasio MD, Preoperative Diagnosis: Umbilical hernia. Postoperative Diagnosis: Umbilical hernia. Procedure Performed: Open primary umbilical hernia repair. Anesthesia: General endotracheal plus local with 0.25% Marcaine with epinephrine. Estimated Blood Loss: Less than 2 cc. Specimen: None. Findings: Fascia from prior appendectomy 3 days ago was open with torn fascial components. Suture re mained in place, but the fascia tore through a single [id number] suture at the level of the infr aumbilical incision. There was no incarceration of the bowel, although small bowel was present at th e opening. The bowel appeared pink and viable without any evidence of compromise. Complications: None. Disposition: Transferred to recovery room in good condition. Procedure In Detail: After informed consent was obtained, the patient was brought into the operating room and prepped and draped in the usual sterile fashion. After adequate anesthesia was achieved, t he previous infraumbilical incision was opened in its entirety and extended approximately 0.5 cm belo w for better visualization. I simply digitized down to the level of the fascial opening. The fascia was found to be opened at this point. The suture was found to be in place, although torn through on the lateral aspect, but it did remain in its position along the lateral shelving edge of the deeper fascial stitch. There was small bowel poking through this area. It was pink and viable without any evidence of compromise. I examined it, reduced it back to the normal anatomic position. It was toi stalsing. I then irrigated the area copiously with saline and suctioned this out using a pool sucker under visualization. I then used a #1 Ethibond suture to primarily close the fascial opening in a r unning fashion with good approximation of tissues. I then copiously irrigated the subcutaneous deep d ermal layers. I closed the deep adipose tissue and Asha's fascia with interrupted 3-0 Vicryl sutur es. I then irrigated the deep dermal layers and closed the skin with a 4-0 Monocryl running fashion Dermabond was placed over the top. The patient tolerated the procedure well without evidence of comp lication and transferred to the PACU in good condition. All counts were correct at the end of the ca se. TK/MODL Voice ID: [id number] Report ID: [id number]
[2018-08-23] MEDS: D5 0.45 NS 1,000 ML IV SCH ×3 (00:21→20:02)
[2018-08-23 06:53] LABS: Urine Appearance CLEAR; Urine Bilirubin NEGATIVE (NEG); Urine Blood NEGATIVE (NEG); Urine Color YELLOW; Urine Glucose NEGATIVE (NEG); Urine Protein 1+ (NEG); Urine Specific Gravity 1.025 (1.005-1.030); Urine Urobilinogen 0.2 mg/dL (0.2-1.0)
[2018-08-23 07:07] LABS: Urine Microscopic Reflex ORDER UMIC
[2018-08-23 07:08] LABS: Urine Bacteria <20 /HPF (<20); Urine Culture Reflex Order NOT NEEDED; Urine RBC <5 /HPF (NONE SEEN)
[2018-08-23] MEDS ORDERED: MEPERIDINE HCL 50 MG/ML AMP IV PRN (07:22)
[2018-08-23] MEDS: ENOXAPARIN 40 MG/0.4 ML SQ SCH (09:09)
[2018-08-23] MEDS: PANTOPRAZOLE 40 MG INJ IVP SCH (09:09)
--- NOTE | 2018-08-23 17:46 | P.PN ---
Subjective Date of Service: 08/23/18 Subjective: Improving (Patient has soreness in incision, but otherwise doing well, tolerating liquids, nausae resolved, ambulator in halls) Physical Examination - Vital Signs Temperature: 98.7 F Blood Pressure: 115/57 Pulse: 79 Respirations: 16 Pulse Ox (%): 92 - Physical Exam General: Alert, In no apparent distress, Cooperative Gastrointestinal: Other (soft, mild appropriate TTP, ND, no rebound, no guarding , incision clean) Assessment And Plan - Current Problems (Diagnosis) (1) Umbilical hernia Current Visit: Yes Status: Acute - Plan - IV hydration - pain control - check electrolytes - ambulate in halls - advance diet
--- NOTE | 2018-08-23 17:48 | P.PN ---
Date of Service: 08/23/18 Patient had urinary retention last evening, arthur placed, removed this AM - dc protonix
[2018-08-24] MEDS: D5 0.45 NS 1,000 ML IV SCH ×2 (01:23→12:02)
[2018-08-24 06:21] LABS: Absolute Lymphocytes (CBC) 1.2 K/uL (0.7-4.9); Basophils % 0.5 % (0-1.3); Eosinophils % 2.2 % (0-4.4); Lymphocytes % 15.6 % (15.3-44.8); Monocytes % 7.7 % (3.3-12.3)
[2018-08-24 06:31] LABS: BUN Blood Urea Nitrogen 2 mg/dL (7-18); Bicarbonate 30 mmol/L (21-32); Glucose Level 116 mg/dL (74-106); Magnesium 1.9 mg/dL (1.8-2.4); Phosphorus 2.4 mg/dL (2.5-4.9); Sodium Level 141 mmol/L (136-145)
[2018-08-24] MEDS ORDERED: POTASSIUM CL SA 10 MEQ TAB PO ONE ×2 (07:45→08:00)
[2018-08-24] MEDS: ENOXAPARIN 40 MG/0.4 ML SQ SCH (08:51)
[2018-08-24] MEDS: POTASS/SODIUM PHOSPHATE 1 PKT POWD.PACK PO SCH ×3 (08:52→10:55)
== END 2018-08-24 15:02 | disposition home or self-care (01) | DRG 355 ==
LOC: ER 14:35 → ERHOLD 18:24 → 2ND 19:10
PROVIDERS: ADMIT Surgery; ATTEND Surgery
PROC: 0WQF0ZZ Repair Abdominal Wall, Open Approach (ICD-10-PCS; principal; 2018-08-22 08:30)
DX: K43.2 Incisional hernia without obstruction or gangrene (principal); E03.9 Hypothyroidism, unspecified; E78.5 Hyperlipidemia, unspecified; R33.9 Retention of urine, unspecified; Z88.1 Allergy status to other antibiotic agents; Z91.040 Latex allergy status
CPT/HCPCS: 36415; 74177; 80048; 80076; 81003; 81015; 83690; 83735; 84100; 84132; 85025; 93005; 96361; 96374; 96375; 99284; C9113; J0690; J1170; J1650; J2175; J2250; J2270; J2405; J2704; J2710; J3010; J7030; Q9967